=== PATIENT | female | born 1945 | race Hispanic/Latino ===

== ENCOUNTER 2018-01-07 09:39 | Outpatient (CLI) | payer MEDICARE | END 2018-01-07 09:40 | disposition home or self-care (01) | LOC: BICMAMMO 09:39 | PROVIDERS: ATTEND Nurse Practitioner Family | DX: Z12.31 Encounter for screening mammogram for malignant neoplasm of breast (principal); R92.1 Mammographic calcification found on diagnostic imaging of breast | CPT/HCPCS: 77063; 77067 ==

== ENCOUNTER 2019-01-16 15:38 | Outpatient (CLI) | payer MEDICARE ==
--- NOTE | 2019-01-16 16:27 | BD ---
Exam: DEXA Bone Density 01/16/19 HISTORY: Postmenopausal female undergoing screening for osteoporosis. Lumbar Spine: BMD (g/cm2) T-SCORE L1 0.676 -2.9 L2 0.667 -3.3 L3 0.710 -3.4 L4 0.845 -2.0 L1-L4 0.725 -2.9 Femoral Neck: 0.546 -2.7 Total Femur: 0.804 -1.1 FRAX-WHO fracture risk assessment tool is not reported as some T-Scores are at or below -2.5. Impression: Lumbar spine and femoral neck osteoporosis, correlating with a high associated risk for fracture. Transcribed Date/Time: 01/16/2019 4:27 PM
--- NOTE | 2019-01-16 16:53 | MMO ---
Bilateral MAMMO Bilat Screen [facility]. CLINICAL HISTORY: Patient is 73 years old and is seen for screening. The patient has no family history of breast cancer. The patient has no personal history of cancer. VIEWS: The views performed were: bilateral craniocaudal with tomosynthesis and bilateral mediolateral oblique with tomosynthesis. FILMS COMPARED: The present examination has been compared to prior imaging studies performed at [facility] on 11/13/2014, 12/03/2015, 01/05/2017 and 01/07/2018. This study has been interpreted with the assistance of computer-aided detection. MAMMOGRAM FINDINGS: There are scattered fibroglandular densities. There are stable benign appearing calcifications seen in the left breast. There are no suspicious masses, suspicious calcifications, or new areas of architectural distortion. IMPRESSION: THERE IS NO MAMMOGRAPHIC EVIDENCE OF MALIGNANCY. A ROUTINE FOLLOW-UP MAMMOGRAM IN 1 YEAR IS RECOMMENDED. THE RESULTS OF THIS EXAM WERE SENT TO THE PATIENT. ACR BI-RADS Category 2 - Benign finding MAMMOGRAPHY NOTE: 1. A negative mammogram report should not delay a biopsy if a dominant of clinically suspicious mass is present. 2. Approximately 10% to 15% of breast cancers are not detected by mammography. 3. Adenosis and dense breasts may obscure an underlying neoplasm. Reported by: BHAVNA BRADLEY MD Electonically Signed: [id number]
== END 2019-01-16 15:39 | disposition home or self-care (01) ==
LOC: BICMAMMO 15:38
PROVIDERS: ATTEND Nurse Practitioner Family
DX: Z12.31 Encounter for screening mammogram for malignant neoplasm of breast (principal); Z13.820 Encounter for screening for osteoporosis
CPT/HCPCS: 77063; 77067; 77080

== ENCOUNTER 2020-03-19 11:00 | Outpatient (CLI) | payer MEDICARE ==
--- NOTE | 2020-03-19 11:25 | MMO ---
Bilateral MAMMO Bilat Screen [facility]. CLINICAL HISTORY: Patient is 74 years old and is seen for screening. The patient has no family history of breast cancer. The patient has no personal history of cancer. VIEWS: The views performed were: bilateral craniocaudal with tomosynthesis and bilateral mediolateral oblique with tomosynthesis. FILMS COMPARED: The present examination has been compared to prior imaging studies performed at [facility] on 12/03/2015, 01/05/2017, 01/07/2018 and 01/16/2019. This study has been interpreted with the assistance of computer-aided detection. MAMMOGRAM FINDINGS: There are scattered fibroglandular densities. There are stable benign appearing calcifications seen in both breasts. There are no suspicious masses, suspicious calcifications, or new areas of architectural distortion. IMPRESSION: THERE IS NO MAMMOGRAPHIC EVIDENCE OF MALIGNANCY. A ROUTINE FOLLOW-UP MAMMOGRAM IN 1 YEAR IS RECOMMENDED. THE RESULTS OF THIS EXAM WERE SENT TO THE PATIENT. ACR BI-RADS Category 2 - Benign finding MAMMOGRAPHY NOTE: 1. A negative mammogram report should not delay a biopsy if a dominant of clinically suspicious mass is present. 2. Approximately 10% to 15% of breast cancers are not detected by mammography. 3. Adenosis and dense breasts may obscure an underlying neoplasm. Reported by: INO MARSHALL MD Electonically Signed: [id number]
== END 2020-03-19 11:01 | disposition home or self-care (01) ==
LOC: BICMAMMO 11:00
PROVIDERS: ATTEND Nurse Practitioner Family
DX: Z12.31 Encounter for screening mammogram for malignant neoplasm of breast (principal)
CPT/HCPCS: 77063; 77067

== ENCOUNTER 2020-05-23 16:17 | Inpatient (IN) | payer MEDICARE ==
[2020-05-23 17:21] LABS: Hemoglobin 12.8 g/dL (12.0-16.0); Mean Corpuscular HGB CONC 34.8 g/dL (32.0-36.0); Mean Corpuscular Hemoglobin 32.3 pg (27.0-31.0); Mean Corpuscular Volume 92.8 fL (78.0-98.0); Mean Platelet Volume 7.8 fL (7.4-10.4); Platelet Count 392 thou/uL (130-400); RBC Distribution Width 13.1 % (11.5-14.5); Red Blood Cell (RBC) Count 3.97 mill/uL (4.20-5.40); White Blood Cell (WBC) Count 24.4 thou/uL (4.8-10.8)
[2020-05-23 17:40] LABS: Band 20 % (5-11); Eosinophils 9 % (0-10); Lymphocytes 13 % (21-51); MDiff Complete? YES; Monocytes 2 % (0-10); Neutrophil 55 % (42-75); Platelet Morphology Comment Appears Adequate; RBC Morphology Normal; Reactive Lymphocytes 1 % (0-10)
[2020-05-23 17:59] LABS: ALT (SGPT) 28 U/L (8-55); AST (SGOT) 29 U/L (5-34); Albumin 3.2 g/dL (3.4-4.8); Alkaline Phosphatase 111 U/L (40-110); Anion Gap 23 mmol/L (10-20); BUN (Urea Nitrogen) 49 mg/dL (9.8-20.1); Bilirubin, Total 0.6 mg/dL (0.2-1.2); Calc. Creatinine Clearance 0 mL/min (70-130); Calcium 8.4 mg/dL (7.8-10.44); Carbon Dioxide 16 mmol/L (23-31); Chloride 103 mmol/L (98-107); Globulin 3.6 g/dL (2.4-3.5); Glucose 117 mg/dL (83-110); Protein, Total 6.8 g/dL (5.8-8.1); Sodium 139 mmol/L (136-145)
[2020-05-23 18:03] LABS: Potassium 2.5 mmol/L (3.5-5.1)
[2020-05-23] MEDS ORDERED: Cefepime 1 GM VIAL ONE (18:18)
[2020-05-23 18:31] LABS: INR-International Normal Ratio 1.1; PTT 33.6 sec (22.9-36.1)
[2020-05-23 18:39] LABS: D-Dimer Test 9.76 *mcg/mL (0.27-0.43)
[2020-05-23] MEDS ORDERED: Cefepime 1 GM in Sodium Chloride 0.9% 100 ML IVPB SCH (18:45)
[2020-05-23] MEDS ORDERED: Sodium Chloride 0.9% 1,000 ML IV SCH (18:45)
[2020-05-23] MEDS ORDERED: VANCOMYCIN 1.25 GM/250 ML BAG 1.25 GM in Premix Bag 1 BAG IVPB SCH (18:45)
[2020-05-23] MEDS ORDERED: Ondansetron PF 4 MG/2 ML Vial IVP PRN (21:05)
[2020-05-23] MEDS ORDERED: Acetaminophen 325 MG TAB PO PRN (21:05)
[2020-05-23] MEDS ORDERED: hydrALAZINE 20 MG/ML VIAL SLOW IVP PRN (21:06)
[2020-05-23] MEDS ORDERED: Potassium Chloride 20 MEQ TAB PO SCH (21:15)
[2020-05-23] MEDS ORDERED: Dextrose 5 % And 0.9 % NaCl 1,000 ML IV SCH (21:15)
[2020-05-23] MEDS ORDERED: Magnesium Oxide 400 MG TAB PO SCH (21:15)
[2020-05-23] MEDS ORDERED: Potassium Chloride 20 MEQ in Premix Bag 1 BAG IVPB SCH ×2 (21:45→23:15)
[2020-05-23 22:30] VITALS: BMI 27.7
[2020-05-23] MEDS: Sodium Chloride 0.9% 1,000 ML IV SCH (23:09)
[2020-05-24 00:46] LABS: Bilirubin Negative (Negative); Blood, Urine 3+ (Negative); Clarity Turbid (Clear); Glucose, Urine (Dipstick) Normal (Negative); Ketone, Urine Negative (Negative); Leukocyte 500 Leu/uL (Negative); Nitrite Negative (Negative); Protein, Urine (Dipstick) 200 mg/dL (Neg-Trace); RBC/HPF Greater than 50 HPF (0-3); Renal Epithelial 0-3 HPF (None Seen); Specific Gravity, Urine 1.015 (1.002-1.036); Squamous Epithelial 0-3 HPF (0-3); Urobilinogen Normal mg/dL (Less than 2); WBC/HPF Greater than 50 HPF (0-3)
[2020-05-24 00:48] LABS: Bacteria/HPF 3+ HPF (None Seen); Urine Culture Reflex Yes Yes; Yeast-Budding 4+ HPF (None Seen)
[2020-05-24 01:01] LABS: Creatinine, Urine 102.21 mg/dL (47-110)
[2020-05-24 04:56] LABS: SARS-CoV-2 PCR by NAA Not Detected (NotDetected)
[2020-05-24 04:56] LABS: Hemoglobin 9.7 g/dL (12.0-16.0); Mean Corpuscular HGB CONC 34.7 g/dL (32.0-36.0); Mean Corpuscular Hemoglobin 32.2 pg (27.0-31.0); Mean Corpuscular Volume 92.8 fL (78.0-98.0); Mean Platelet Volume 7.5 fL (7.4-10.4); Platelet Count 298 thou/uL (130-400); Red Blood Cell (RBC) Count 3.01 mill/uL (4.20-5.40); White Blood Cell (WBC) Count 16.1 thou/uL (4.8-10.8)
[2020-05-24 05:04] LABS: Potassium 2.6 mmol/L (3.5-5.1)
[2020-05-24 05:05] LABS: Anion Gap 17 mmol/L (10-20); BUN (Urea Nitrogen) 50 mg/dL (9.8-20.1); Calc. Creatinine Clearance 16 mL/min (70-130); Calcium 7.1 mg/dL (7.8-10.44); Carbon Dioxide 21 mmol/L (23-31); Chloride 108 mmol/L (98-107); Glucose 91 mg/dL (83-110); Sodium 143 mmol/L (136-145)
[2020-05-24 05:08] LABS: Band 23 % (5-11); Eosinophils 8 % (0-10); Lymphocytes 21 % (21-51); MDiff Complete? YES; Monocytes 4 % (0-10); Neutrophil 43 % (42-75); Platelet Morphology Comment Appears Adequate; Reactive Lymphocytes 1 % (0-10)
[2020-05-24] MEDS ORDERED: Potassium Chloride 20 MEQ TAB PO SCH ×2 (05:15→17:45)
[2020-05-24] MEDS ORDERED: Bacteriostatic Water 30 ML VIAL FS PRN (10:00)
[2020-05-24] MEDS: Sodium Chloride 0.9% 1,000 ML IV SCH ×2 (10:12→21:36)
[2020-05-24] MEDS: methylPREDNISolone Sod Succ/PF 125 MG/2 ML VIAL IVP SCH (10:12)
[2020-05-24 11:14] LABS: Anion Gap 15 mmol/L (10-20); BUN (Urea Nitrogen) 48 mg/dL (9.8-20.1); Calc. Creatinine Clearance 17 mL/min (70-130); Calcium 7.6 mg/dL (7.8-10.44); Carbon Dioxide 23 mmol/L (23-31); Chloride 108 mmol/L (98-107); Glucose 124 mg/dL (83-110); Sodium 143 mmol/L (136-145)
[2020-05-24 11:21] LABS: Potassium 2.7 mmol/L (3.5-5.1)
[2020-05-24] MEDS ORDERED: Cefepime 0.5 GM, Admixture Fee 1 EACH in Sodium Chloride 0.9% 100 ML IVPB SCH (18:00)
[2020-05-24 18:45] LABS: Vancomycin, Random 13.5 ug/mL (See Comment)
[2020-05-24] MEDS ORDERED: Vancomycin 1 GM in Premix Bag 1 BAG IVPB SCH (19:00)
[2020-05-24] MEDS: diphenhydrAMINE 25 MG CAP PO PRN (22:24)
[2020-05-25 04:43] LABS: #Basophils 0.1 thou/uL (0.0-0.2); #Eosinphils 0.1 thou/uL (0.0-0.7); #Lymphocytes 1.5 thou/uL (1.20-3.40); #Monocytes 0.6 thou/uL (0.11-0.59); #Neutrophils 12.3 thou/uL (1.40-6.50); %Basophils 0.4 % (0.0-1.0); %Eosinophils 0.5 % (0.0-10.0); %Lymphocytes 10.1 % (21.0-51.0); %Monocytes 4.3 % (0.0-10.0); %Neutrophils 84.8 % (42.0-75.0); Hemoglobin 8.9 g/dL (12.0-16.0); Mean Corpuscular HGB CONC 33.2 g/dL (32.0-36.0); Mean Corpuscular Volume 93.3 fL (78.0-98.0); Mean Platelet Volume 7.8 fL (7.4-10.4); Platelet Count 271 thou/uL (130-400); RBC Distribution Width 13.2 % (11.5-14.5); Red Blood Cell (RBC) Count 2.89 mill/uL (4.20-5.40); White Blood Cell (WBC) Count 14.5 thou/uL (4.8-10.8)
[2020-05-25 05:08] LABS: Anion Gap 13 mmol/L (10-20); BUN (Urea Nitrogen) 50 mg/dL (9.8-20.1); Calc. Creatinine Clearance 22 mL/min (70-130); Calcium 7.4 mg/dL (7.8-10.44); Carbon Dioxide 22 mmol/L (23-31); Chloride 114 mmol/L (98-107); Glucose 196 mg/dL (83-110); Magnesium 2.1 mg/dL (1.6-2.6); Sodium 146 mmol/L (136-145)
[2020-05-25 05:13] LABS: Potassium 2.8 mmol/L (3.5-5.1)
[2020-05-25] MEDS ORDERED: Potassium Chloride 20 MEQ TAB PO SCH (05:30)
[2020-05-25] MEDS ORDERED: Cefepime 1 GM in Sodium Chloride 0.9% 100 ML IVPB SCH (06:00)
[2020-05-25] MEDS: Sodium Chloride 0.9% 1,000 ML IV SCH ×2 (07:32→17:20)
[2020-05-25] MEDS: diphenhydrAMINE 25 MG CAP PO PRN ×2 (08:38→22:08)
[2020-05-25] MEDS: methylPREDNISolone Sod Succ/PF 125 MG/2 ML VIAL IVP SCH (08:38)
[2020-05-25] MEDS ORDERED: methylPREDNISolone Sod Succ/PF 125 MG/2 ML VIAL IVP SCH (09:00)
[2020-05-26] MEDS: Sodium Chloride 0.9% 1,000 ML IV SCH ×4 (02:25→21:36)
[2020-05-26 07:21] LABS: Anion Gap 12 mmol/L (10-20); BUN (Urea Nitrogen) 44 mg/dL (9.8-20.1); Calc. Creatinine Clearance 28 mL/min (70-130); Calcium 7.4 mg/dL (7.8-10.44); Carbon Dioxide 21 mmol/L (23-31); Chloride 117 mmol/L (98-107); Glucose 107 mg/dL (83-110); Magnesium 2.1 mg/dL (1.6-2.6); Potassium 3.2 mmol/L (3.5-5.1); Sodium 147 mmol/L (136-145)
[2020-05-26 07:38] LABS: Mean Corpuscular HGB CONC 33.1 g/dL (32.0-36.0); Mean Corpuscular Hemoglobin 31.2 pg (27.0-31.0); Mean Corpuscular Volume 94.2 fL (78.0-98.0); Platelet Count 265 thou/uL (130-400); RBC Distribution Width 13.3 % (11.5-14.5); White Blood Cell (WBC) Count 14.3 thou/uL (4.8-10.8)
[2020-05-26] MEDS: Heparin 5,000 UNITS/ML VIAL SC SCH ×3 (07:51→21:32)
[2020-05-26] MEDS: methylPREDNISolone Sod Succ/PF 125 MG/2 ML VIAL IVP SCH (07:51)
[2020-05-26] MEDS: diphenhydrAMINE 25 MG CAP PO PRN (07:54)
[2020-05-26 10:23] LABS: Band 21 % (5-11); Eosinophils 1 % (0-10); Lymphocytes 16 % (21-51); MDiff Complete? YES; Metamyelocyte 1 % (0-0); Monocytes 6 % (0-10); Myelocyte 1 % (0-0); Neutrophil 53 % (42-75); Platelet Morphology Comment Appears Adequate; Polychromasia SLIGHT = 2-3 cells (100X) (0-2/hpf); Reactive Lymphocytes 1 % (0-10)
[2020-05-27] MEDS: diphenhydrAMINE 25 MG CAP PO PRN (04:44)
[2020-05-27 07:52] VITALS: TEMP 98.4
[2020-05-27] MEDS ORDERED: Furosemide 40 MG/4 ML VIAL SLOW IVP SCH (08:00)
[2020-05-27 08:22] LABS: Anion Gap 15 mmol/L (10-20); BUN (Urea Nitrogen) 45 mg/dL (9.8-20.1); Calc. Creatinine Clearance 31 mL/min (70-130); Calcium 7.2 mg/dL (7.8-10.44); Carbon Dioxide 17 mmol/L (23-31); Chloride 118 mmol/L (98-107); Glucose 96 mg/dL (83-110); Sodium 147 mmol/L (136-145)
[2020-05-27 08:28] LABS: Potassium 2.7 mmol/L (3.5-5.1)
[2020-05-27] MEDS: Heparin 5,000 UNITS/ML VIAL SC SCH (08:56)
[2020-05-27] MEDS: methylPREDNISolone Sod Succ/PF 125 MG/2 ML VIAL IVP SCH (08:57)
[2020-05-27] MEDS ORDERED: Potassium Chloride 20 MEQ TAB PO SCH (10:00)
[2020-05-27 12:14] VITALS: BP 169/82
[2020-05-28 13:32] LABS: ANA Symphony (Qualitative) Negative (Negative); ANA Symphony (Quantitative) 0.1 Ratio (< 0.7 Negative); CCP IgG Antibody Less than 0.4 EliAU/mL (<7 Negative); EliA RAS New Method **** NEW METHOD ****; Rheumatoid Factor IgA Antibody 4.5 IU/mL (<14 Negative); Rheumatoid Factor IgM Antibody 3.3 IU/mL (<3.5 Negative); dsDNA IgG Antibody Less than 0.5 IU/mL (<10 Negative)
== END 2020-05-27 15:03 | disposition home or self-care (01) | DRG 871 ==
LOC: ERS 16:17 → 2NO 19:33 → T4-A 05-25 12:36
PROVIDERS: ADMIT Internal Medicine; ATTEND Internal Medicine
DX: A41.9 Sepsis, unspecified organism (principal); N17.0 Acute kidney failure with tubular necrosis; Z20.822 Contact with and (suspected) exposure to COVID-19; L51.2 Toxic epidermal necrolysis [Lyell]; E87.2 Acidosis; I10 Essential (primary) hypertension; R65.20 Severe sepsis without septic shock; E87.6 Hypokalemia; R79.89 Other specified abnormal findings of blood chemistry; I87.2 Venous insufficiency (chronic) (peripheral); L27.0 Generalized skin eruption due to drugs and medicaments taken internally; T36.8X5A Adverse effect of other systemic antibiotics, initial encounter; T50.2X5A Adverse effect of carbonic-anhydrase inhibitors, benzothiadiazides and other diuretics, initial encounter; T46.4X5A Adverse effect of angiotensin-converting-enzyme inhibitors, initial encounter; T50.Z95A Adverse effect of other vaccines and biological substances, initial encounter; Z79.899 Other long term (current) drug therapy; Z90.721 Acquired absence of ovaries, unilateral
CPT/HCPCS: 36415; 71045; 76770; 80048; 80053; 80202; 81001; 82570; 83520; 83605; 83735; 84300; 85025; 85379; 85610; 85652; 85730; 86038; 86140; 86200; 86225; 87040; 87086; 87635; 93005; 93306; 94640; 96365; 96366; 96367; J0692; J1644; J1940; J2930; J3370; J3480; J7620; Q0163; U0003; U0005

== ENCOUNTER 2022-06-22 09:16 | Outpatient (CLI) | payer OTHER | END 2022-06-22 09:17 | disposition home or self-care (01) | LOC: RAD 09:16 | PROVIDERS: ATTEND Family Medicine | DX: R13.10 Dysphagia, unspecified (principal); K44.9 Diaphragmatic hernia without obstruction or gangrene; K22.89 Other specified disease of esophagus | CPT/HCPCS: 74220 ==

== ENCOUNTER 2022-08-17 14:19 | Emergency (ER) | payer OTHER ==
[2022-08-17] MEDS ORDERED: predniSONE 20 MG TAB ONE (15:51)
== END 2022-08-17 15:58 | disposition home or self-care (01) ==
LOC: ERS 14:19
DX: S69.92XA Unspecified injury of left wrist, hand and finger(s), initial encounter (principal); I10 Essential (primary) hypertension; W22.8XXA Striking against or struck by other objects, initial encounter
CPT/HCPCS: J7512

== ENCOUNTER 2022-11-02 09:58 | Emergency (ER) | payer OTHER | END 2022-11-02 10:27 | disposition home or self-care (01) | LOC: ERS 09:58 | DX: M79.81 Nontraumatic hematoma of soft tissue (principal); I10 Essential (primary) hypertension | CPT/HCPCS: 99283 ==

== ENCOUNTER 2022-11-20 13:01 | Inpatient (IN) | payer OTHER ==
[2022-11-20] MEDS ORDERED: Ondansetron PF 4 MG/2 ML Vial ONE (14:16)
[2022-11-20] MEDS ORDERED: Cefepime 2 GM VIAL ONE (14:16)
[2022-11-20 14:30] LABS: #Monocytes 0.7 thou/uL (0.11-0.59); #Neutrophils 15.5 thou/uL (1.40-6.50); %Basophils 0.2 % (0.0-1.0); %Monocytes 3.8 % (0.0-10.0); Hematocrit 13.9 % (36.0-47.0); Hemoglobin 4.2 g/dL (12.0-16.0); Mean Corpuscular HGB CONC 30.2 g/dL (32.0-36.0); Mean Corpuscular Hemoglobin 30.9 pg (27.0-31.0); Mean Corpuscular Volume 102.2 fl (78.0-98.0); Mean Platelet Volume 11.4 fL (7.4-10.4); Platelet Count 312 10x3/uL (130-400); RBC Distribution Width 18.3 % (11.5-14.5); Red Blood Cell (RBC) Count 1.36 mill/uL (4.20-5.40); White Blood Cell (WBC) Count 17.8 10x3/uL (4.8-10.8)
[2022-11-20 14:43] LABS: INR-International Normal Ratio 1.1; PTT 37.8 sec (22.9-36.1); Prothrombin Time 15.1 sec (12.0-14.7)
[2022-11-20 14:44] LABS: #Monocytes 0.7 thou/uL (0.11-0.59); #Neutrophils 14.6 thou/uL (1.40-6.50); %Basophils 0.2 % (0.0-1.0); %Lymphocytes 8.2 % (21.0-51.0); %Neutrophils 86.5 % (42.0-75.0); Hemoglobin 3.9 g/dL (12.0-16.0); Mean Corpuscular Volume 103.2 fl (78.0-98.0); Mean Platelet Volume 11.5 fL (7.4-10.4); Platelet Count 280 10x3/uL (130-400); RBC Distribution Width 18.3 % (11.5-14.5); Red Blood Cell (RBC) Count 1.26 mill/uL (4.20-5.40); White Blood Cell (WBC) Count 16.8 10x3/uL (4.8-10.8)
[2022-11-20 15:00] LABS: Troponin I 0.018 ng/mL (< 0.028)
[2022-11-20 15:07] LABS: ALT (SGPT) 15 U/L (8-55); AST (SGOT) 35 U/L (5-34); Albumin 3.4 g/dL (3.4-4.8); Alkaline Phosphatase 65 U/L (40-110); Anion Gap 20 mmol/L (10-20); BUN (Urea Nitrogen) 78 mg/dL (9.8-20.1); Bilirubin, Total 0.2 mg/dL (0.2-1.2); Calc. Creatinine Clearance 0 mL/min (70-130); Calcium 9.2 mg/dL (7.8-10.44); Carbon Dioxide 19 mmol/L (23-31); Chloride 103 mmol/L (98-107); Estimated GFR 20; Globulin 2.3 g/dL (2.4-3.5); Glucose 173 mg/dL (83-110); Lipase 24 U/L (8-78); Potassium 4.8 mmol/L (3.5-5.1); Protein, Total 5.7 g/dL (5.8-8.1); Sodium 137 mmol/L (136-145)
[2022-11-20 15:34] LABS: SARS-CoV-2 NAA Rapid Test Not Detected (NotDetected)
[2022-11-20] MEDS ORDERED: Pantoprazole 80 MG, Admixture Fee 1 EACH in Sodium Chloride 0.9% 100 ML IVPB SCH (17:00)
[2022-11-20] MEDS ORDERED: Vancomycin 1 GM/200 ML (FROZEN) BAG ONE (18:10)
[2022-11-20 19:07] LABS: Bacteria/HPF None Seen HPF (None Seen); Bilirubin Negative (Negative); Blood, Urine Negative (Negative); CAUTI Indications for Culture Dysuria,urgency,freq; Clarity Clear (Clear); Glucose, Urine (Dipstick) Normal (Negative); Ketone, Urine Negative (Negative); Leukocyte Negative Leu/uL (Negative); Nitrite Negative (Negative); Protein, Urine (Dipstick) Negative (Neg-Trace); RBC/HPF 0-3 HPF (0-3); Specific Gravity, Urine 1.015 (1.002-1.036); Squamous Epithelial 0-3 HPF (0-3); Urobilinogen Normal mg/dL (Less than 2); WBC/HPF 0-3 HPF (0-3); pH, Urine 5.5 (5.0-9.0)
[2022-11-20] MEDS ORDERED: Ondansetron PF 4 MG/2 ML Vial IVP PRN (19:07)
[2022-11-20] MEDS ORDERED: Acetaminophen 325 MG TAB PO PRN (19:07)
[2022-11-20 19:09] LABS: Urine Culture Reflex No No
[2022-11-20] MEDS: Sodium Chloride 0.9% 1,000 ML IV SCH (21:15)
[2022-11-20 21:49] LABS: Hemoglobin 7.1 g/dL (12.0-16.0)
[2022-11-20 23:06] VITALS: BMI 28.3
[2022-11-20 23:43] LABS: Lactic Acid 1.4 mmol/L (0.5-2.2)
[2022-11-21 02:55] LABS: Anion Gap 13 mmol/L (10-20); BUN (Urea Nitrogen) 69 mg/dL (9.8-20.1); Calc. Creatinine Clearance 26 mL/min (70-130); Calcium 7.7 mg/dL (7.8-10.44); Carbon Dioxide 17 mmol/L (23-31); Chloride 113 mmol/L (98-107); Estimated GFR 27; Glucose 120 mg/dL (83-110); Magnesium 1.7 mg/dL (1.6-2.6); Potassium 3.8 mmol/L (3.5-5.1); Sodium 139 mmol/L (136-145)
[2022-11-21 03:12] LABS: #Neutrophils 8.4 thou/uL (1.40-6.50); %Basophils 0.3 % (0.0-1.0); %Eosinophils 0.3 % (0.0-10.0); %Lymphocytes 15.8 % (21.0-51.0); %Monocytes 8.7 % (0.0-10.0); %Neutrophils 73.2 % (42.0-75.0); Hematocrit 18.2 % (36.0-47.0); Hemoglobin 5.7 g/dL (12.0-16.0); Mean Corpuscular HGB CONC 31.3 g/dL (32.0-36.0); Mean Corpuscular Hemoglobin 30.5 pg (27.0-31.0); RBC Distribution Width 18.8 % (11.5-14.5); Red Blood Cell (RBC) Count 1.87 mill/uL (4.20-5.40); White Blood Cell (WBC) Count 11.4 10x3/uL (4.8-10.8)
[2022-11-21 03:20] LABS: Mean Corpuscular Volume 97.3 fl (78.0-98.0); Platelet Count 166 10x3/uL (130-400)
[2022-11-21 07:33] LABS: Hematocrit 22.6 % (36.0-47.0); Hemoglobin 7.2 g/dL (12.0-16.0)
[2022-11-21] MEDS: Pantoprazole 80 MG, Admixture Fee 1 EACH in Sodium Chloride 0.9% 100 ML IVPB SCH ×2 (08:00→17:44)
[2022-11-21 08:08] VITALS: BP 132/68
[2022-11-21 09:42] LABS: Hematocrit 27.9 % (36.0-47.0); Hemoglobin 9.2 g/dL (12.0-16.0)
[2022-11-21] MEDS: Sodium Chloride 0.9% 1,000 ML IV SCH ×2 (09:58→21:30)
[2022-11-21] MEDS ORDERED: Magnesium 2 GM/50 ML(in water) 2 GM in Premix Bag 1 BAG IVPB SCH (10:30)
[2022-11-21] MEDS ORDERED: Cyanocobalamin 1000 MCG/ML VIAL IM SCH (15:30)
[2022-11-21] MEDS: Cefepime 1 GM in Sodium Chloride 0.9% 100 ML IVPB SCH (16:05)
[2022-11-22] MEDS: Pantoprazole 80 MG, Admixture Fee 1 EACH in Sodium Chloride 0.9% 100 ML IVPB SCH ×2 (04:42→15:06)
[2022-11-22 05:04] LABS: #Basophils 0.1 thou/uL (0.0-0.2); #Eosinphils 0.3 thou/uL (0.0-0.7); #Monocytes 0.8 thou/uL (0.11-0.59); #Neutrophils 6.7 thou/uL (1.40-6.50); %Basophils 0.6 % (0.0-1.0); %Eosinophils 2.5 % (0.0-10.0); %Lymphocytes 19.5 % (21.0-51.0); %Monocytes 7.8 % (0.0-10.0); %Neutrophils 67.2 % (42.0-75.0); Hematocrit 24.9 % (36.0-47.0); Hemoglobin 7.9 g/dL (12.0-16.0); Mean Corpuscular HGB CONC 31.7 g/dL (32.0-36.0); Mean Corpuscular Volume 97.6 fl (78.0-98.0); Mean Platelet Volume 11.4 fL (7.4-10.4); Platelet Count 144 10x3/uL (130-400); RBC Distribution Width 18.2 % (11.5-14.5); Red Blood Cell (RBC) Count 2.55 mill/uL (4.20-5.40)
[2022-11-22 07:14] LABS: Anion Gap 12 mmol/L (10-20); BUN (Urea Nitrogen) 54 mg/dL (9.8-20.1); Calc. Creatinine Clearance 32 mL/min (70-130); Calcium 7.6 mg/dL (7.8-10.44); Carbon Dioxide 17 mmol/L (23-31); Chloride 113 mmol/L (98-107); Estimated GFR 34; Glucose 83 mg/dL (83-110); Potassium 4.6 mmol/L (3.5-5.1); Sodium 137 mmol/L (136-145)
[2022-11-22] MEDS: Sodium Chloride 0.9% 1,000 ML IV SCH (11:03)
[2022-11-22 12:41] LABS: Hematocrit 25.8 % (36.0-47.0); Hemoglobin 8.4 g/dL (12.0-16.0)
[2022-11-22] MEDS: Cefepime 1 GM in Sodium Chloride 0.9% 100 ML IVPB SCH (15:06)
[2022-11-22 17:28] VITALS: TEMP 97.1
== END 2022-11-22 20:00 | disposition home or self-care (01) | DRG 872 ==
LOC: ERS 13:01 → ERHOLD 18:22 → IMCU/EMU 21:11
PROVIDERS: ADMIT Family Medicine; ATTEND Emergency Medicine
PROC: 30233N1 Transfusion of Nonautologous Red Blood Cells into Peripheral Vein, Percutaneous Approach (ICD-10-PCS; principal; 2022-11-20)
PROC: 3E03329 Introduction of Other Anti-infective into Peripheral Vein, Percutaneous Approach (ICD-10-PCS; 2022-11-20)
DX: A41.9 Sepsis, unspecified organism (principal); E87.20 Acidosis, unspecified; N17.9 Acute kidney failure, unspecified; I12.9 Hypertensive chronic kidney disease with stage 1 through stage 4 chronic kidney disease, or unspecified chronic kidney disease; K44.9 Diaphragmatic hernia without obstruction or gangrene; N18.30 Chronic kidney disease, stage 3 unspecified; D63.1 Anemia in chronic kidney disease; I95.9 Hypotension, unspecified; Z20.822 Contact with and (suspected) exposure to COVID-19; K52.9 Noninfective gastroenteritis and colitis, unspecified; R65.20 Severe sepsis without septic shock; E83.42 Hypomagnesemia; K80.20 Calculus of gallbladder without cholecystitis without obstruction; K63.89 Other specified diseases of intestine; K21.00 Gastro-esophageal reflux disease with esophagitis, without bleeding; Z98.51 Tubal ligation status; Z90.722 Acquired absence of ovaries, bilateral; E53.8 Deficiency of other specified B group vitamins
CPT/HCPCS: 36415; 36416; 36430; 70450; 71045; 74176; 80048; 81001; 82274; 82607; 83605; 83690; 83735; 83880; 84132; 84443; 84484; 85025; 85610; 85730; 86850; 86900; 86901; 87040; 87086; 93005; 94760; 96361; 96365; 96367; 96375; C9113; J0692; J2405; J3370-JW; J3420; J3475; J3490; J7050; P9016; U0002

== ENCOUNTER 2023-01-23 17:55 | Emergency (ER) | payer MEDICARE, OTHER ==
[~2023-01-23 17:55] MED LIST: Iopamidol-370 76% 500 ML MDV (1 ML CHARGE) ONE
[2023-01-23 18:48] LABS: #Basophils 0.1 thou/uL (0.0-0.2); #Eosinphils 0.3 thou/uL (0.0-0.7); #Monocytes 0.9 thou/uL (0.11-0.59); #Neutrophils 9.6 thou/uL (1.40-6.50); %Basophils 0.6 % (0.0-1.0); %Eosinophils 2.5 % (0.0-10.0); %Lymphocytes 10.3 % (21.0-51.0); %Monocytes 7.3 % (0.0-10.0); %Neutrophils 78.7 % (42.0-75.0); Hematocrit 31.2 % (36.0-47.0); Mean Corpuscular HGB CONC 32.1 g/dL (32.0-36.0); Mean Corpuscular Hemoglobin 30.1 pg (27.0-31.0); Mean Platelet Volume 10.1 fL (7.4-10.4); Platelet Count 400 10x3/uL (130-400); Red Blood Cell (RBC) Count 3.32 mill/uL (4.20-5.40); White Blood Cell (WBC) Count 12.2 10x3/uL (4.8-10.8)
[2023-01-23 19:00] LABS: Prothrombin Time 13.7 sec (12.0-14.7)
[2023-01-23 19:01] LABS: PTT 61.7 sec (22.9-36.1)
[2023-01-23 19:14] LABS: ALT (SGPT) 13 U/L (8-55); AST (SGOT) 23 U/L (5-34); Albumin 4.1 g/dL (3.4-4.8); Alkaline Phosphatase 137 U/L (40-110); Anion Gap 13 mmol/L (10-20); BUN (Urea Nitrogen) 22 mg/dL (9.8-20.1); Bilirubin, Total 0.4 mg/dL (0.2-1.2); CK (CPK) 170 U/L (29-168); Calc. Creatinine Clearance 0 mL/min (70-130); Calcium 8.6 mg/dL (7.8-10.44); Carbon Dioxide 20 mmol/L (23-31); Chloride 111 mmol/L (98-107); Estimated GFR 37; Globulin 2.8 g/dL (2.4-3.5); Glucose 120 mg/dL (83-110); Protein, Total 6.9 g/dL (5.8-8.1); Sodium 140 mmol/L (136-145)
[2023-01-23 19:18] LABS: Troponin I 0.011 ng/mL (< 0.028)
[2023-01-23 22:15] LABS: Troponin I Less than 0.010 ng/mL (< 0.028)
[2023-01-23 22:22] LABS: Bacteria/HPF 1+ HPF (None Seen); Bilirubin Negative (Negative); Blood, Urine 1+ (Negative); CAUTI Indications for Culture Dysuria,urgency,freq; Clarity Clear (Clear); Glucose, Urine (Dipstick) Normal (Negative); Ketone, Urine Negative (Negative); Leukocyte 75 Leu/uL (Negative); Nitrite Negative (Negative); Protein, Urine (Dipstick) Negative (Neg-Trace); Specific Gravity, Urine 1.015 (1.002-1.036); Squamous Epithelial 0-3 HPF (0-3); Urine Culture Reflex No No; Urobilinogen Normal mg/dL (Less than 2); WBC/HPF 0-3 HPF (0-3)
== END 2023-01-23 23:10 | disposition home or self-care (01) ==
LOC: ERS 17:55
DX: S42.401A Unspecified fracture of lower end of right humerus, initial encounter for closed fracture (principal); I72.8 Aneurysm of other specified arteries; K44.9 Diaphragmatic hernia without obstruction or gangrene; R00.0 Tachycardia, unspecified; I10 Essential (primary) hypertension; X58.XXXA Exposure to other specified factors, initial encounter
CPT/HCPCS: 29125; 36415; 71045; 71275; 80053; 81001; 82550; 83735; 83880; 84443; 84484; 85025; 85610; 85730; 93005; 96360; Q9967

== ENCOUNTER 2023-02-02 17:18 | Inpatient (IN) | payer OTHER ==
[2023-02-02] MEDS ORDERED: Pantoprazole 40 MG VIAL ONE (18:12)
[2023-02-02 18:39] LABS: Hematocrit 13.8 % (36.0-47.0); Manual Diff?? YES; Mean Corpuscular Hemoglobin 32.8 pg (27.0-31.0); Mean Corpuscular Volume 113.1 fl (78.0-98.0); Mean Platelet Volume 10.4 fL (7.4-10.4); Platelet Count 408 10x3/uL (130-400); RBC Distribution Width 23.8 % (11.5-14.5); Red Blood Cell (RBC) Count 1.22 mill/uL (4.20-5.40); White Blood Cell (WBC) Count 19.6 10x3/uL (4.8-10.8)
[2023-02-02 18:41] LABS: Delete Auto Diff?? YES
[2023-02-02 19:04] LABS: ALT (SGPT) 8 U/L (8-55); AST (SGOT) 16 U/L (5-34); Albumin 3.3 g/dL (3.4-4.8); Alkaline Phosphatase 77 U/L (40-110); Anion Gap 17 mmol/L (10-20); BUN (Urea Nitrogen) 58 mg/dL (9.8-20.1); Bilirubin, Total 0.7 mg/dL (0.2-1.2); Calc. Creatinine Clearance 0 mL/min (70-130); Calcium 8.6 mg/dL (7.8-10.44); Carbon Dioxide 17 mmol/L (23-31); Chloride 111 mmol/L (98-107); Estimated GFR 36; Globulin 2.1 g/dL (2.4-3.5); Glucose 168 mg/dL (83-110); Lipase 27 U/L (8-78); Potassium 4.1 mmol/L (3.5-5.1); Protein, Total 5.4 g/dL (5.8-8.1); Sodium 141 mmol/L (136-145)
[2023-02-02 19:08] LABS: Troponin I Less than 0.010 ng/mL (< 0.028)
[2023-02-02 19:11] LABS: INR-International Normal Ratio 1.2; Prothrombin Time 15.9 sec (12.0-14.7)
[2023-02-02 19:12] LABS: PTT 40.2 sec (22.9-36.1)
[2023-02-02 19:14] LABS: Anisocytosis MODERATE=16-30 cells HPF (0-5); Band 4 % (5-11); CellaVision Operator ID LAB.KB; Hypochromia SLIGHT = 6-15 cells HPF (0-5); Lymphocytes 7 % (21-51); Macrocytosis MODERATE=16-30 cells HPF (0-5); Monocytes 3 % (0-10); Myelocyte 1 % (0-0); Neutrophil 85 % (42-75); Nucleated RBC (Manual Ct) 2 % (0); Ovalocytes SLIGHT = 2-5 cells HPF (0-1); Platelet Adequacy Comment Platelets Increased; Polychromasia SLIGHT = 2-3 cells HPF (0-2); Smudge Cells 6.9 %; Total Cell Count 102
[2023-02-02] MEDS ORDERED: Acetaminophen 325 MG TAB PO PRN (21:36)
[2023-02-02] MEDS ORDERED: Ondansetron ODT 4 MG TAB PO PRN (21:41)
[2023-02-02] MEDS ORDERED: Ondansetron PF 4 MG/2 ML Vial IVP PRN (21:41)
[2023-02-02 21:47] LABS: Lactic Acid 1.2 mmol/L (0.5-2.2)
[2023-02-02] MEDS ORDERED: Pantoprazole 80 MG in Sodium Chloride 0.9% 100 ML IVPB SCH (21:47)
[2023-02-02] MEDS: Pantoprazole 80 MG, Admixture Fee 1 EACH in Sodium Chloride 0.9% 100 ML IVPB SCH (23:56)
[2023-02-03 01:03] LABS: Hematocrit 15.2 % (36.0-47.0); Hemoglobin 4.7 g/dL (12.0-16.0)
[2023-02-03] MEDS: Pantoprazole 80 MG, Admixture Fee 1 EACH in Sodium Chloride 0.9% 100 ML IVPB SCH (09:26)
[2023-02-03 10:42] LABS: Manual Diff?? YES; Mean Corpuscular Hemoglobin 28.3 pg (27.0-31.0); Mean Platelet Volume 10.1 fL (7.4-10.4); Platelet Count 255 10x3/uL (130-400); RBC Distribution Width 19.9 % (11.5-14.5); Red Blood Cell (RBC) Count 2.86 mill/uL (4.20-5.40); White Blood Cell (WBC) Count 14.3 10x3/uL (4.8-10.8)
[2023-02-03 10:45] LABS: Hemoglobin 8.1 g/dL (12.0-16.0)
[2023-02-03 10:46] LABS: Hematocrit 25.3 % (36.0-47.0); Mean Corpuscular Volume 88.5 fl (78.0-98.0)
[2023-02-03 10:47] LABS: Delete Auto Diff?? YES
[2023-02-03 10:56] LABS: Anion Gap 11 mmol/L (10-20); BUN (Urea Nitrogen) 48 mg/dL (9.8-20.1); Calc. Creatinine Clearance 43 mL/min (70-130); Calcium 7.8 mg/dL (7.8-10.44); Carbon Dioxide 20 mmol/L (23-31); Chloride 117 mmol/L (98-107); Estimated GFR 50; Glucose 110 mg/dL (83-110); Potassium 3.9 mmol/L (3.5-5.1); Sodium 144 mmol/L (136-145)
[2023-02-03 11:17] LABS: Band 5 % (5-11); Burr Cells SLIGHT = 2-5 cells HPF (0-1); CellaVision Operator ID LAB.CMB; Lymphocytes 7 % (21-51); Macrocytosis SLIGHT = 6-15 cells HPF (0-5); Monocytes 3 % (0-10); Neutrophil 82 % (42-75); Nucleated RBC (Manual Ct) 7 % (0); Ovalocytes SLIGHT = 2-5 cells HPF (0-1); Platelet Adequacy Comment Platelets Normal; Polychromasia SLIGHT = 2-3 cells HPF (0-2); Total Cell Count 101
[2023-02-03 11:37] LABS: Ferritin 87.34 ng/mL (10-291)
[2023-02-03] MEDS: Sucralfate 1 GM TAB PO SCH ×3 (11:40→21:58)
[2023-02-03 12:41] LABS: HBSAg Index 0.24 S/CO (0-0.99); Hep B Surf Ag Non-Reactive S/CO (NonReactive); Hep C IgG Ab Non-Reactive S/CO (NonReactive); Hep C Index 0.03 S/CO (0-0.79)
[2023-02-03 12:43] LABS: HBCM Index 0.05 S/CO (0-0.79); Hep A IgM AB Non-Reactive S/CO (NonReactive); Hep A IgM S/CO 0.21 S/CO (0-0.79); Hepatitis B Core IgM Abs Non-Reactive S/CO (NonReactive)
[2023-02-03 13:00] LABS: Iron 204 ug/dL (50-170); Iron Binding Capacity, Total 360 mcg/dL (265-497)
[2023-02-03] MEDS ORDERED: FLU VACC QS2023(65UP)/MF59C/PF 60 MCG/0.5 ML SYRINGE IM ONE (23:45)
[2023-02-04 05:57] LABS: Hematocrit 21.5 % (36.0-47.0); Hemoglobin 6.7 g/dL (12.0-16.0); Manual Diff?? YES; Mean Corpuscular HGB CONC 31.2 g/dL (32.0-36.0); Mean Corpuscular Hemoglobin 28.4 pg (27.0-31.0); Mean Corpuscular Volume 91.1 fl (78.0-98.0); Mean Platelet Volume 10.6 fL (7.4-10.4); Platelet Count 245 10x3/uL (130-400); Red Blood Cell (RBC) Count 2.36 mill/uL (4.20-5.40); White Blood Cell (WBC) Count 10.6 10x3/uL (4.8-10.8)
[2023-02-04 06:23] LABS: Anion Gap 11 mmol/L (10-20); BUN (Urea Nitrogen) 48 mg/dL (9.8-20.1); Calc. Creatinine Clearance 43 mL/min (70-130); Calcium 7.9 mg/dL (7.8-10.44); Carbon Dioxide 20 mmol/L (23-31); Chloride 115 mmol/L (98-107); Estimated GFR 50; Glucose 108 mg/dL (83-110); Potassium 3.7 mmol/L (3.5-5.1); Sodium 142 mmol/L (136-145)
[2023-02-04 06:30] LABS: Delete Auto Diff?? YES
[2023-02-04 06:57] LABS: Anisocytosis MODERATE=16-30 cells HPF (0-5); CellaVision Operator ID lab.abc; Eosinophils 1 % (0-10); Hypochromia SLIGHT = 6-15 cells HPF (0-5); Lymphocytes 13 % (21-51); Macrocytosis SLIGHT = 6-15 cells HPF (0-5); Metamyelocyte 2 % (0-0); Monocytes 5 % (0-10); Myelocyte 1 % (0-0); Neutrophil 78 % (42-75); Nucleated RBC (Manual Ct) 2 % (0); Platelet Adequacy Comment Platelets Normal; Polychromasia MODERATE = 3-4 cells HPF (0-2); Total Cell Count 100
[2023-02-04] MEDS: Sucralfate 1 GM TAB PO SCH ×3 (07:55→16:47)
[2023-02-04 08:26] LABS: Hematocrit 20.2 % (36.0-47.0); Hemoglobin 6.3 g/dL (12.0-16.0)
[2023-02-04] MEDS: Ferrous Sulfate 325 MG TAB PO SCH (09:34)
[2023-02-04] MEDS: Multivitamin W/ Minerals 1 TAB PO SCH (09:34)
[2023-02-04] MEDS: Cholecalciferol 1,000 UNITS (25 MCG) TAB PO SCH (09:34)
[2023-02-04] MEDS: Cyanocobalamin (Vitamin B-12) 1,000 MCG TAB PO SCH (09:34)
[2023-02-04] MEDS: Ascorbic Acid 500 mg Chewable Tablet PO SCH (09:35)
[2023-02-04] MEDS: Amlodipine 5 MG TAB PO SCH (09:35)
[2023-02-04] MEDS: Folic Acid 1 MG TAB PO SCH (09:35)
[2023-02-05 04:06] LABS: #Eosinphils 0.2 thou/uL (0.0-0.7); #Monocytes 0.8 thou/uL (0.11-0.59); #Neutrophils 6.6 thou/uL (1.40-6.50); %Basophils 0.4 % (0.0-1.0); %Eosinophils 1.9 % (0.0-10.0); %Lymphocytes 15.9 % (21.0-51.0); %Monocytes 8.4 % (0.0-10.0); %Neutrophils 69.2 % (42.0-75.0); Hematocrit 20.5 % (36.0-47.0); Hemoglobin 6.5 g/dL (12.0-16.0); Mean Corpuscular HGB CONC 31.7 g/dL (32.0-36.0); Mean Corpuscular Hemoglobin 28.9 pg (27.0-31.0); Mean Corpuscular Volume 91.1 fl (78.0-98.0); Mean Platelet Volume 10.5 fL (7.4-10.4); Platelet Count 208 10x3/uL (130-400); Red Blood Cell (RBC) Count 2.25 mill/uL (4.20-5.40); White Blood Cell (WBC) Count 9.6 10x3/uL (4.8-10.8)
[2023-02-05 04:29] LABS: Anion Gap 9 mmol/L (10-20); BUN (Urea Nitrogen) 39 mg/dL (9.8-20.1); Calc. Creatinine Clearance 45 mL/min (70-130); Calcium 7.7 mg/dL (7.8-10.44); Carbon Dioxide 22 mmol/L (23-31); Chloride 112 mmol/L (98-107); Estimated GFR 53; Glucose 97 mg/dL (83-110); Potassium 3.6 mmol/L (3.5-5.1); Sodium 139 mmol/L (136-145)
[2023-02-05] MEDS ORDERED: PROPOFOL 200 MG/20 ML VIAL ONE (09:36)
[2023-02-05] MEDS ORDERED: EPINEPHrine 1 MG/10 ML Abboject SYRINGE ONE (09:43)
[2023-02-05] MEDS ORDERED: PROPOFOL 40 ML ONE (09:56)
[2023-02-05] MEDS: Folic Acid 1 MG TAB PO SCH (11:23)
[2023-02-05] MEDS: Ferrous Sulfate 325 MG TAB PO SCH (11:23)
[2023-02-05] MEDS: Cyanocobalamin (Vitamin B-12) 1,000 MCG TAB PO SCH (11:23)
[2023-02-05] MEDS: Cholecalciferol 1,000 UNITS (25 MCG) TAB PO SCH (11:24)
[2023-02-05] MEDS: Multivitamin W/ Minerals 1 TAB PO SCH (11:24)
[2023-02-05] MEDS: Ascorbic Acid 500 mg Chewable Tablet PO SCH (11:24)
[2023-02-05] MEDS: Amlodipine 5 MG TAB PO SCH (11:24)
[2023-02-05] MEDS ORDERED: Pantoprazole 40 MG VIAL IVP SCH (11:45)
[2023-02-05 17:45] LABS: Hemoglobin 8.6 g/dL (12.0-16.0)
[2023-02-05] MEDS: Pantoprazole 40 MG VIAL IVP SCH (20:40)
[2023-02-06 05:10] LABS: #Eosinphils 0.1 thou/uL (0.0-0.7); #Monocytes 0.7 thou/uL (0.11-0.59); #Neutrophils 9.2 thou/uL (1.40-6.50); %Basophils 0.2 % (0.0-1.0); %Eosinophils 1.2 % (0.0-10.0); %Lymphocytes 9.2 % (21.0-51.0); %Neutrophils 81.7 % (42.0-75.0); Hematocrit 23.8 % (36.0-47.0); Hemoglobin 7.8 g/dL (12.0-16.0); Mean Corpuscular HGB CONC 32.8 g/dL (32.0-36.0); Mean Corpuscular Hemoglobin 30.7 pg (27.0-31.0); Mean Corpuscular Volume 93.7 fl (78.0-98.0); Mean Platelet Volume 10.5 fL (7.4-10.4); Platelet Count 210 10x3/uL (130-400); RBC Distribution Width 22.5 % (11.5-14.5); Red Blood Cell (RBC) Count 2.54 mill/uL (4.20-5.40); White Blood Cell (WBC) Count 11.3 10x3/uL (4.8-10.8)
[2023-02-06 05:39] LABS: Anion Gap 9 mmol/L (10-20); BUN (Urea Nitrogen) 24 mg/dL (9.8-20.1); Calc. Creatinine Clearance 39 mL/min (70-130); Carbon Dioxide 24 mmol/L (23-31); Chloride 111 mmol/L (98-107); Estimated GFR 45; Glucose 93 mg/dL (83-110); Potassium 3.6 mmol/L (3.5-5.1); Sodium 140 mmol/L (136-145)
[2023-02-06] MEDS: Cyanocobalamin (Vitamin B-12) 1,000 MCG TAB PO SCH (08:53)
[2023-02-06] MEDS: Folic Acid 1 MG TAB PO SCH (08:53)
[2023-02-06] MEDS: Ascorbic Acid 500 mg Chewable Tablet PO SCH (08:53)
[2023-02-06] MEDS: Multivitamin W/ Minerals 1 TAB PO SCH (08:53)
[2023-02-06] MEDS: Cholecalciferol 1,000 UNITS (25 MCG) TAB PO SCH (08:53)
[2023-02-06] MEDS: Ferrous Sulfate 325 MG TAB PO SCH (08:53)
[2023-02-06] MEDS: Pantoprazole 40 MG VIAL IVP SCH (08:54)
[2023-02-06] MEDS: Amlodipine 5 MG TAB PO SCH (08:54)
[2023-02-06 20:40] LABS: #Eosinphils 0.1 thou/uL (0.0-0.7); #Monocytes 0.9 thou/uL (0.11-0.59); #Neutrophils 9.6 thou/uL (1.40-6.50); %Basophils 0.3 % (0.0-1.0); %Eosinophils 0.6 % (0.0-10.0); %Lymphocytes 6.8 % (21.0-51.0); %Monocytes 8.1 % (0.0-10.0); %Neutrophils 83.2 % (42.0-75.0); Hematocrit 25.5 % (36.0-47.0); Hemoglobin 8.3 g/dL (12.0-16.0); Mean Corpuscular HGB CONC 32.5 g/dL (32.0-36.0); Mean Corpuscular Hemoglobin 30.7 pg (27.0-31.0); Mean Corpuscular Volume 94.4 fl (78.0-98.0); Mean Platelet Volume 10.2 fL (7.4-10.4); Platelet Count 230 10x3/uL (130-400); RBC Distribution Width 22.8 % (11.5-14.5); White Blood Cell (WBC) Count 11.6 10x3/uL (4.8-10.8)
[2023-02-07 06:16] LABS: #Eosinphils 0.1 thou/uL (0.0-0.7); #Monocytes 0.7 thou/uL (0.11-0.59); #Neutrophils 7.7 thou/uL (1.40-6.50); %Basophils 0.3 % (0.0-1.0); %Eosinophils 1.2 % (0.0-10.0); %Lymphocytes 8.3 % (21.0-51.0); %Monocytes 7.8 % (0.0-10.0); %Neutrophils 81.2 % (42.0-75.0); Hematocrit 26.4 % (36.0-47.0); Hemoglobin 8.3 g/dL (12.0-16.0); Mean Corpuscular HGB CONC 31.4 g/dL (32.0-36.0); Mean Corpuscular Volume 95.3 fl (78.0-98.0); Mean Platelet Volume 10.7 fL (7.4-10.4); Platelet Count 239 10x3/uL (130-400); RBC Distribution Width 22.5 % (11.5-14.5); Red Blood Cell (RBC) Count 2.77 mill/uL (4.20-5.40); White Blood Cell (WBC) Count 9.5 10x3/uL (4.8-10.8)
[2023-02-07 08:56] VITALS: BP 128/74; TEMP 98.5
[2023-02-07] MEDS: Ascorbic Acid 500 mg Chewable Tablet PO SCH (10:01)
[2023-02-07] MEDS: Cholecalciferol 1,000 UNITS (25 MCG) TAB PO SCH (10:02)
[2023-02-07] MEDS: Ferrous Sulfate 325 MG TAB PO SCH (10:02)
[2023-02-07] MEDS: Folic Acid 1 MG TAB PO SCH (10:02)
[2023-02-07] MEDS: Multivitamin W/ Minerals 1 TAB PO SCH (10:02)
[2023-02-07] MEDS: Amlodipine 5 MG TAB PO SCH (10:02)
[2023-02-07] MEDS: Cyanocobalamin (Vitamin B-12) 1,000 MCG TAB PO SCH (10:02)
== END 2023-02-07 11:35 | disposition home or self-care (01) | DRG 381 ==
LOC: ERS 17:18 → 2NO 20:53 → T4-A 02-06 14:15
PROVIDERS: ADMIT Student in an Organized Health Care Education/Training Program; ATTEND Family Medicine
PROC: 30233N1 Transfusion of Nonautologous Red Blood Cells into Peripheral Vein, Percutaneous Approach (ICD-10-PCS; 2023-02-02)
PROC: 0W3P8ZZ Control Bleeding in Gastrointestinal Tract, Via Natural or Artificial Opening Endoscopic (ICD-10-PCS; principal; 2023-02-05)
DX: K22.11 Ulcer of esophagus with bleeding (principal); D62 Acute posthemorrhagic anemia; N17.9 Acute kidney failure, unspecified; K21.00 Gastro-esophageal reflux disease with esophagitis, without bleeding; N18.30 Chronic kidney disease, stage 3 unspecified; I12.9 Hypertensive chronic kidney disease with stage 1 through stage 4 chronic kidney disease, or unspecified chronic kidney disease; D63.1 Anemia in chronic kidney disease; Z98.51 Tubal ligation status; Z79.899 Other long term (current) drug therapy; Z98.890 Other specified postprocedural states; K44.9 Diaphragmatic hernia without obstruction or gangrene; E63.9 Nutritional deficiency, unspecified
CPT/HCPCS: 36415; 36430; 74177; 80048; 80053; 80074; 82274; 82607; 82728; 83540; 83550; 83605; 83690; 84484; 85025; 85610; 85730; 86850; 86900; 86901; 88184; 93005; 96361; 96374; C9113; J0171; J2704; J3490; P9016; Q9967

== ENCOUNTER 2023-04-25 09:19 | Inpatient (IN) | payer MEDICARE, OTHER ==
[2023-04-25 09:54] LABS: #Basophils 0.1 thou/uL (0.0-0.2); #Monocytes 0.6 thou/uL (0.11-0.59); #Neutrophils 11.1 thou/uL (1.40-6.50); %Basophils 0.5 % (0.0-1.0); %Eosinophils 0.1 % (0.0-10.0); %Lymphocytes 7.6 % (21.0-51.0); %Monocytes 4.5 % (0.0-10.0); %Neutrophils 86.6 % (42.0-75.0); Hematocrit 18.3 % (36.0-47.0); Hemoglobin 5.7 g/dL (12.0-16.0); Mean Corpuscular HGB CONC 31.1 g/dL (32.0-36.0); Mean Corpuscular Hemoglobin 28.1 pg (27.0-31.0); Mean Corpuscular Volume 90.1 fl (78.0-98.0); Mean Platelet Volume 10.2 fL (7.4-10.4); Platelet Count 428 10x3/uL (130-400); RBC Distribution Width 16.7 % (11.5-14.5); Red Blood Cell (RBC) Count 2.03 mill/uL (4.20-5.40); White Blood Cell (WBC) Count 12.9 10x3/uL (4.8-10.8)
[2023-04-25 09:58] LABS: Critical Call w/ Read Back ERS.JI AT 958
[2023-04-25 10:13] LABS: INR-International Normal Ratio 1.4; Prothrombin Time 17.1 sec (12.0-14.7)
[2023-04-25 10:14] LABS: PTT 69.9 sec (22.9-36.1)
[2023-04-25 10:30] LABS: ALT (SGPT) 9 U/L (8-55); AST (SGOT) 16 U/L (5-34); Albumin 3.5 g/dL (3.4-4.8); Alkaline Phosphatase 86 U/L (40-110); Anion Gap 15 mmol/L (10-20); BUN (Urea Nitrogen) 46 mg/dL (9.8-20.1); Bilirubin, Total 0.8 mg/dL (0.2-1.2); Calc. Creatinine Clearance 0 mL/min (70-130); Calcium 8.7 mg/dL (7.8-10.44); Carbon Dioxide 17 mmol/L (23-31); Chloride 111 mmol/L (98-107); Estimated GFR 32; Globulin 2.5 g/dL (2.4-3.5); Glucose 175 mg/dL (83-110); Potassium 4.1 mmol/L (3.5-5.1); Sodium 139 mmol/L (136-145)
[2023-04-25] MEDS ORDERED: Pantoprazole 40 MG VIAL ONE (10:32)
[2023-04-25] MEDS ORDERED: Iopamidol-370 76% 500 ML MDV (1 ML CHARGE) ONE (10:38)
[2023-04-25] MEDS ORDERED: Acetaminophen 325 MG TAB PO PRN (12:48)
[2023-04-25] MEDS ORDERED: Ondansetron PF 4 MG/2 ML Vial ONE (13:58)
[2023-04-25] MEDS: Ondansetron PF 4 MG/2 ML Vial IVP PRN (14:05)
[2023-04-25] MEDS ORDERED: Morphine 2 MG/ML VIAL ONE (15:34)
[2023-04-25] MEDS: Morphine 2 MG/ML VIAL SLOW IVP PRN (15:39)
[2023-04-25 18:13] VITALS: BMI 25.9
[2023-04-25 18:36] LABS: Hematocrit 20.5 % (36.0-47.0); Hemoglobin 6.9 g/dL (12.0-16.0)
[2023-04-25 18:53] LABS: Lactic Acid 3.5 mmol/L (0.5-2.2)
[2023-04-25] MEDS: Lactated Ringer's 1,000 ML IV SCH (19:15)
[2023-04-26] MEDS: Pantoprazole 80 MG in Sodium Chloride 0.9% 100 ML IVPB SCH (03:21)
[2023-04-26 05:55] LABS: Hematocrit 19.9 % (36.0-47.0); Hematocrit 20.6 % (36.0-47.0); Hemoglobin 6.7 g/dL (12.0-16.0); Manual Diff?? YES; Mean Corpuscular HGB CONC 33.7 g/dL (32.0-36.0); Mean Corpuscular Hemoglobin 31.2 pg (27.0-31.0); Mean Corpuscular Volume 92.6 fl (78.0-98.0); Mean Platelet Volume 10.9 fL (7.4-10.4); RBC Distribution Width 14.3 % (11.5-14.5); Red Blood Cell (RBC) Count 2.15 mill/uL (4.20-5.40); White Blood Cell (WBC) Count 26.2 10x3/uL (4.8-10.8)
[2023-04-26 06:02] LABS: Delete Auto Diff?? YES; Platelet Count 259 10x3/uL (130-400)
[2023-04-26 06:28] LABS: Anion Gap 18 mmol/L (10-20); Anisocytosis SLIGHT = 6-15 cells HPF (0-5); BUN (Urea Nitrogen) 64 mg/dL (9.8-20.1); Band 6 % (5-11); Calc. Creatinine Clearance 23 mL/min (70-130); Calcium 7.4 mg/dL (7.8-10.44); Carbon Dioxide 14 mmol/L (23-31); CellaVision Operator ID LAB.CLH1; Chloride 115 mmol/L (98-107); Estimated GFR 23; Glucose 198 mg/dL (83-110); Hypochromia SLIGHT = 6-15 cells HPF (0-5); Lymphocytes 3 % (21-51); Monocytes 4 % (0-10); Neutrophil 87 % (42-75); Nucleated RBC (Manual Ct) 2 % (0); Platelet Adequacy Comment Platelets Normal; Polychromasia SLIGHT = 2-3 cells HPF (0-2); Potassium 4.9 mmol/L (3.5-5.1); Sodium 142 mmol/L (136-145); Total Cell Count 101
[2023-04-26] MEDS ORDERED: Pantoprazole 80 MG, Admixture Fee 1 EACH in Sodium Chloride 0.9% 100 ML IVPB SCH (07:00)
[2023-04-26] MEDS ORDERED: Fentanyl 100 MCG/2 ML VIAL SLOW IVP PRN (07:40)
[2023-04-26] MEDS ORDERED: fentaNYL 50 mcg/mL 1 mL Vial SLOW IVP PRN (07:45)
[2023-04-26] MEDS ORDERED: Sodium Chloride 0.9% 250 ML IV SCH (07:45)
[2023-04-26] MEDS ORDERED: Lidocaine 1% PF 5 ML VIAL ONE (09:41)
[2023-04-26] MEDS ORDERED: SUCCINYLCHOLINE/SOD CL,ISO/PF 200 MG/10 ML SYRINGE FS ONE (09:41)
[2023-04-26] MEDS ORDERED: PROPOFOL 20 ML ONE (09:41)
[2023-04-26] MEDS ORDERED: fentaNYL 50 mcg/mL 1 mL Vial ONE (09:41)
[2023-04-26] MEDS ORDERED: Rocuronium Bromide 10 MG/ML (10ML VIAL) ONE (09:41)
[2023-04-26] MEDS ORDERED: Albumin 5% 500 ML ONE (09:48)
[2023-04-26] MEDS ORDERED: Etomidate 40 MG (20 mL) VIAL ONE (09:49)
[2023-04-26] MEDS ORDERED: Phenylephrine 40 MG/NS 250 ML 250 ML ONE (09:50)
[2023-04-26 09:59] LABS: Base Excess (BEa) -11.2 mEq/L (-2.0 to +3.0); Calcium, Ionized (arterial) 1.04 mmol/L (1.12-1.30); Hematocrit-ABG 24 % (36.0-47.0); Hemoglobin (Hb) 8.2 g/dL (12.0-16.0); O2 Tension (PaO2), arterial 79.7 mmHg (> 70.0); Potassium - ABG Lab 5.08 mmol/L (3.70-5.30); pH, Arterial 7.405 (7.35-7.45)
[2023-04-26 10:01] LABS: CO2 Tension 19.6 mmHg (35.0-45.0)
[2023-04-26] MEDS ORDERED: EPINEPHrine 1 MG/10 ML Abboject SYRINGE ONE (11:01)
[2023-04-26] MEDS: Sodium Bicarbonate 150 MEQ in Dextrose 5% in Water 1,000 ML IV SCH (16:00)
[2023-04-26 17:15] LABS: #Monocytes 1.8 thou/uL (0.11-0.59); #Neutrophils 16.9 thou/uL (1.40-6.50); %Basophils 0.2 % (0.0-1.0); %Monocytes 8.3 % (0.0-10.0); %Neutrophils 78.1 % (42.0-75.0); Hematocrit 24.7 % (36.0-47.0); Hemoglobin 8.3 g/dL (12.0-16.0); Mean Corpuscular HGB CONC 33.6 g/dL (32.0-36.0); Mean Corpuscular Hemoglobin 30.9 pg (27.0-31.0); Mean Corpuscular Volume 91.8 fl (78.0-98.0); Mean Platelet Volume 10.8 fL (7.4-10.4); Platelet Count 174 10x3/uL (130-400); RBC Distribution Width 14.8 % (11.5-14.5); Red Blood Cell (RBC) Count 2.69 mill/uL (4.20-5.40); White Blood Cell (WBC) Count 21.7 10x3/uL (4.8-10.8)
[2023-04-26 17:37] LABS: Anion Gap 13 mmol/L (10-20); BUN (Urea Nitrogen) 72 mg/dL (9.8-20.1); Calc. Creatinine Clearance 20 mL/min (70-130); Calcium 7.3 mg/dL (7.8-10.44); Carbon Dioxide 17 mmol/L (23-31); Chloride 115 mmol/L (98-107); Estimated GFR 20; Glucose 167 mg/dL (83-110); Potassium 4.4 mmol/L (3.5-5.1); Sodium 141 mmol/L (136-145)
[2023-04-27 06:35] LABS: #Neutrophils 10.2 thou/uL (1.40-6.50); %Basophils 0.3 % (0.0-1.0); %Eosinophils 0.2 % (0.0-10.0); %Lymphocytes 11.8 % (21.0-51.0); %Monocytes 7.6 % (0.0-10.0); %Neutrophils 77.6 % (42.0-75.0); Hemoglobin 7.5 g/dL (12.0-16.0); Mean Corpuscular HGB CONC 32.6 g/dL (32.0-36.0); Mean Corpuscular Hemoglobin 31.4 pg (27.0-31.0); Mean Platelet Volume 10.9 fL (7.4-10.4); Platelet Count 154 10x3/uL (130-400); RBC Distribution Width 16.4 % (11.5-14.5); Red Blood Cell (RBC) Count 2.39 mill/uL (4.20-5.40); White Blood Cell (WBC) Count 13.1 10x3/uL (4.8-10.8)
[2023-04-27 06:43] LABS: Mean Corpuscular Volume 96.2 fl (78.0-98.0)
[2023-04-27 07:01] LABS: Anion Gap 12 mmol/L (10-20); BUN (Urea Nitrogen) 58 mg/dL (9.8-20.1); Calc. Creatinine Clearance 27 mL/min (70-130); Calcium 7.3 mg/dL (7.8-10.44); Carbon Dioxide 24 mmol/L (23-31); Chloride 112 mmol/L (98-107); Estimated GFR 28; Glucose 122 mg/dL (83-110); Potassium 3.5 mmol/L (3.5-5.1); Sodium 144 mmol/L (136-145)
[2023-04-27] MEDS: Pantoprazole 40 MG VIAL IVP SCH (09:01)
[2023-04-27] MEDS: Potassium Chloride 20 MEQ in Lactated Ringer's 1,000 ML IV SCH (09:01)
[2023-04-27 13:16] LABS: Hematocrit 24.6 % (36.0-47.0); Hemoglobin 8.4 g/dL (12.0-16.0)
[2023-04-28 06:07] LABS: #Basophils 0.1 thou/uL (0.0-0.2); #Eosinphils 0.1 thou/uL (0.0-0.7); #Monocytes 0.8 thou/uL (0.11-0.59); #Neutrophils 7.9 thou/uL (1.40-6.50); %Basophils 0.5 % (0.0-1.0); %Eosinophils 0.7 % (0.0-10.0); %Lymphocytes 11.8 % (21.0-51.0); %Monocytes 7.6 % (0.0-10.0); %Neutrophils 76.7 % (42.0-75.0); Hematocrit 25.6 % (36.0-47.0); Hemoglobin 8.6 g/dL (12.0-16.0); Mean Corpuscular HGB CONC 33.6 g/dL (32.0-36.0); Mean Corpuscular Hemoglobin 31.5 pg (27.0-31.0); Mean Corpuscular Volume 93.8 fl (78.0-98.0); Mean Platelet Volume 10.2 fL (7.4-10.4); Platelet Count 183 10x3/uL (130-400); RBC Distribution Width 18.4 % (11.5-14.5); Red Blood Cell (RBC) Count 2.73 mill/uL (4.20-5.40); White Blood Cell (WBC) Count 10.3 10x3/uL (4.8-10.8)
[2023-04-28 06:32] LABS: Anion Gap 9 mmol/L (10-20); BUN (Urea Nitrogen) 29 mg/dL (9.8-20.1); Calc. Creatinine Clearance 38 mL/min (70-130); Carbon Dioxide 25 mmol/L (23-31); Chloride 111 mmol/L (98-107); Estimated GFR 42; Glucose 92 mg/dL (83-110); Potassium 3.8 mmol/L (3.5-5.1); Sodium 141 mmol/L (136-145)
[2023-04-28 12:38] LABS: Hematocrit 25.5 % (36.0-47.0); Hemoglobin 8.3 g/dL (12.0-16.0); Platelet Count 193 10x3/uL (130-400)
[2023-04-29 05:29] LABS: #Eosinphils 0.1 thou/uL (0.0-0.7); #Monocytes 0.6 thou/uL (0.11-0.59); #Neutrophils 5.2 thou/uL (1.40-6.50); %Basophils 0.4 % (0.0-1.0); %Lymphocytes 12.9 % (21.0-51.0); %Monocytes 8.6 % (0.0-10.0); %Neutrophils 74.1 % (42.0-75.0); Mean Corpuscular HGB CONC 32.1 g/dL (32.0-36.0); Mean Corpuscular Hemoglobin 31.7 pg (27.0-31.0); Platelet Count 198 10x3/uL (130-400); RBC Distribution Width 18.7 % (11.5-14.5); Red Blood Cell (RBC) Count 2.84 mill/uL (4.20-5.40)
[2023-04-29 05:32] LABS: Bacteria/HPF 4+ HPF (None Seen); Bilirubin Negative (Negative); Blood, Urine 3+ (Negative); CAUTI Indications for Culture Acute Hematuria; Clarity Clear (Clear); Glucose, Urine (Dipstick) Normal (Negative); Ketone, Urine Negative (Negative); Leukocyte Negative Leu/uL (Negative); Nitrite Negative (Negative); Protein, Urine (Dipstick) Negative (Neg-Trace); RBC/HPF 0-3 HPF (0-3); Specific Gravity, Urine 1.008 (1.002-1.036); Squamous Epithelial 0-3 HPF (0-3); Urobilinogen Normal mg/dL (Less than 2); pH, Urine 7.5 (5.0-9.0)
[2023-04-29 05:33] LABS: Urine Culture Reflex No No
[2023-04-29 05:51] LABS: Mean Corpuscular Volume 98.6 fl (78.0-98.0)
[2023-04-29] MEDS: cefTRIAXone\\ROCEPHIN 1 GM in Sodium Chloride 0.9% 100 ML IVPB SCH (09:17)
[2023-04-30 08:04] LABS: Hemoglobin 8.4 g/dL (12.0-16.0)
[2023-04-30 08:40] VITALS: BP 136/78; TEMP 97.6
== END 2023-04-30 11:09 | disposition home or self-care (01) | DRG 381 ==
LOC: ERS 09:19 → ERHOLD 12:24 → 2NO 17:27 → SURG A 04-26 11:52 → IMCU/EMU 04-26 15:55 → T4-B 04-29 19:33
PROVIDERS: ADMIT Internal Medicine; ATTEND Family Medicine
PROC: 30243N1 Transfusion of Nonautologous Red Blood Cells into Central Vein, Percutaneous Approach (ICD-10-PCS; 2023-04-25)
PROC: 0W3P8ZZ Control Bleeding in Gastrointestinal Tract, Via Natural or Artificial Opening Endoscopic (ICD-10-PCS; principal; 2023-04-26)
PROC: 3E0G8GC Introduction of Other Therapeutic Substance into Upper GI, Via Natural or Artificial Opening Endoscopic (ICD-10-PCS; 2023-04-26)
PROC: 0DD68ZX Extraction of Stomach, Via Natural or Artificial Opening Endoscopic, Diagnostic (ICD-10-PCS; 2023-04-26)
DX: K22.11 Ulcer of esophagus with bleeding (principal); D62 Acute posthemorrhagic anemia; E87.20 Acidosis, unspecified; N17.9 Acute kidney failure, unspecified; K44.9 Diaphragmatic hernia without obstruction or gangrene; I12.9 Hypertensive chronic kidney disease with stage 1 through stage 4 chronic kidney disease, or unspecified chronic kidney disease; R00.0 Tachycardia, unspecified; N18.30 Chronic kidney disease, stage 3 unspecified; E11.22 Type 2 diabetes mellitus with diabetic chronic kidney disease; R31.9 Hematuria, unspecified; K21.9 Gastro-esophageal reflux disease without esophagitis; Z79.899 Other long term (current) drug therapy
CPT/HCPCS: 36415; 36416; 36430; 71045; 74177; 80048; 80053; 81001; 82805; 83605; 83690; 85018; 85025; 85610; 85730; 86850; 86900; 86901; 87040; 87077; 87086; 87186; 94760; 96361; 96374; C1889; C9113; J0171; J0696; J2272; J2405; J2704; J3010; J3480; J3490; J7070; J7120; P9016; P9045; Q9967

== ENCOUNTER 2023-05-21 12:38 | Inpatient (IN) | payer OTHER ==
[2023-05-21 13:27] LABS: #Eosinphils 0.1 thou/uL (0.0-0.7); #Monocytes 0.6 thou/uL (0.11-0.59); #Neutrophils 6.7 thou/uL (1.40-6.50); %Basophils 0.2 % (0.0-1.0); %Eosinophils 0.9 % (0.0-10.0); %Lymphocytes 8.5 % (21.0-51.0); %Neutrophils 82.7 % (42.0-75.0); Hematocrit 18.3 % (36.0-47.0); Hemoglobin 5.6 g/dL (12.0-16.0); Mean Corpuscular HGB CONC 30.6 g/dL (32.0-36.0); Mean Corpuscular Hemoglobin 29.8 pg (27.0-31.0); Mean Corpuscular Volume 97.3 fl (78.0-98.0); Mean Platelet Volume 10.2 fL (7.4-10.4); Platelet Count 423 10x3/uL (130-400); RBC Distribution Width 16.2 % (11.5-14.5); Red Blood Cell (RBC) Count 1.88 mill/uL (4.20-5.40); White Blood Cell (WBC) Count 8.1 10x3/uL (4.8-10.8)
[2023-05-21 13:29] LABS: Critical Call w/ Read Back NUR.MKL@1329
[2023-05-21 13:41] LABS: INR-International Normal Ratio 1.1; Prothrombin Time 14.5 sec (12.0-14.7)
[2023-05-21 13:43] LABS: PTT 97.6 sec (22.9-36.1)
[2023-05-21 13:46] LABS: ALT (SGPT) 18 U/L (8-55); AST (SGOT) 34 U/L (5-34); Albumin 3.5 g/dL (3.4-4.8); Alkaline Phosphatase 118 U/L (40-110); Anion Gap 15 mmol/L (10-20); BUN (Urea Nitrogen) 18 mg/dL (9.8-20.1); Bilirubin, Total 1.1 mg/dL (0.2-1.2); Calc. Creatinine Clearance 0 mL/min (70-130); Calcium 8.9 mg/dL (7.8-10.44); Carbon Dioxide 20 mmol/L (23-31); Chloride 109 mmol/L (98-107); Estimated GFR 34; Globulin 2.8 g/dL (2.4-3.5); Glucose 103 mg/dL (83-110); Potassium 4.2 mmol/L (3.5-5.1); Protein, Total 6.3 g/dL (5.8-8.1); Sodium 140 mmol/L (136-145)
[2023-05-21] MEDS ORDERED: Morphine 4 MG/ML VIAL ONE (13:54)
[2023-05-21] MEDS ORDERED: Ondansetron PF 4 MG/2 ML Vial ONE (13:54)
[2023-05-21 14:29] LABS: Troponin I Less than 0.010 ng/mL (< 0.028)
[2023-05-21] MEDS ORDERED: Ondansetron PF 4 MG/2 ML Vial IVP PRN (16:23)
[2023-05-21] MEDS ORDERED: Bisacodyl 10 MG SUPP PR PRN (16:23)
[2023-05-21] MEDS ORDERED: Senokot S 8.6-50 MG TAB PO PRN (16:23)
[2023-05-21] MEDS ORDERED: Bisacodyl 5 MG TAB PO PRN (16:23)
[2023-05-21] MEDS ORDERED: Acetaminophen 325 MG TAB ONE (18:55)
[2023-05-21] MEDS: Acetaminophen 325 MG TAB PO PRN (19:03)
[2023-05-21 20:57] LABS: Hematocrit 24.8 % (36.0-47.0); Hemoglobin 8.2 g/dL (12.0-16.0); Mean Corpuscular HGB CONC 33.1 g/dL (32.0-36.0); Mean Corpuscular Hemoglobin 29.6 pg (27.0-31.0); Mean Platelet Volume 9.9 fL (7.4-10.4); Platelet Count 362 10x3/uL (130-400); RBC Distribution Width 17.3 % (11.5-14.5); Red Blood Cell (RBC) Count 2.77 mill/uL (4.20-5.40); White Blood Cell (WBC) Count 8.9 10x3/uL (4.8-10.8)
[2023-05-21 20:58] LABS: Platelet Count 352 10x3/uL (130-400)
[2023-05-21 20:59] LABS: Mean Corpuscular Volume 89.5 fl (78.0-98.0)
[2023-05-21 21:11] LABS: INR-International Normal Ratio 1.1; Prothrombin Time 14.5 sec (12.0-14.7)
[2023-05-21 21:12] LABS: Fibrinogen 463 mg/dL (253-463)
[2023-05-21 21:13] LABS: PTT 105.3 sec (22.9-36.1)
[2023-05-21 21:21] LABS: D-Dimer Test 5.48 mcg/mL (0.27-0.43)
[2023-05-21] MEDS: Pantoprazole 40 MG VIAL IVP SCH (22:10)
[2023-05-21 22:30] VITALS: BMI 27.4
[2023-05-22 04:48] LABS: #Eosinphils 0.2 thou/uL (0.0-0.7); #Monocytes 0.7 thou/uL (0.11-0.59); %Basophils 0.4 % (0.0-1.0); %Eosinophils 3.3 % (0.0-10.0); %Lymphocytes 13.5 % (21.0-51.0); %Monocytes 9.9 % (0.0-10.0); %Neutrophils 72.3 % (42.0-75.0); Hematocrit 23.7 % (36.0-47.0); Hemoglobin 7.9 g/dL (12.0-16.0); Mean Corpuscular HGB CONC 33.3 g/dL (32.0-36.0); Mean Corpuscular Hemoglobin 30.3 pg (27.0-31.0); Mean Corpuscular Volume 90.8 fl (78.0-98.0); Mean Platelet Volume 10.3 fL (7.4-10.4); Platelet Count 357 10x3/uL (130-400); RBC Distribution Width 17.6 % (11.5-14.5); Red Blood Cell (RBC) Count 2.61 mill/uL (4.20-5.40)
[2023-05-22 04:51] LABS: Platelet Count 360 10x3/uL (130-400)
[2023-05-22 05:04] LABS: Hemoglobin A1c 4.9 % (4.0-6.0)
[2023-05-22 05:27] LABS: ALT (SGPT) 15 U/L (8-55); AST (SGOT) 28 U/L (5-34); Alkaline Phosphatase 101 U/L (40-110); Anion Gap 12 mmol/L (10-20); BUN (Urea Nitrogen) 15 mg/dL (9.8-20.1); Bilirubin, Total 1.7 mg/dL (0.2-1.2); Calc. Creatinine Clearance 40 mL/min (70-130); Calcium 8.4 mg/dL (7.8-10.44); Carbon Dioxide 20 mmol/L (23-31); Cardiac Risk 2.5 (Less than 4.5); Chloride 112 mmol/L (98-107); Cholesterol 105 mg/dl (< 200 Desired); Estimated GFR 41; Globulin 2.4 g/dL (2.4-3.5); Glucose 87 mg/dL (83-110); HDL Cholesterol 42 mg/dL (>60 Neg Risk); LDL Cholesterol, Calculated 47 mg/dL; Potassium 4.2 mmol/L (3.5-5.1); Protein, Total 5.4 g/dL (5.8-8.1); Sodium 140 mmol/L (136-145); Triglycerides 80 mg/dL (Less than 150)
[2023-05-22 05:28] LABS: INR-International Normal Ratio 1.2
[2023-05-22 05:29] LABS: INR-International Normal Ratio 1.2; Prothrombin Time 15.1 sec (12.0-14.7)
[2023-05-22 05:31] LABS: Fibrinogen 427 mg/dL (253-463)
[2023-05-22 05:33] LABS: PTT 105.8 sec (22.9-36.1)
[2023-05-22 05:42] LABS: D-Dimer Test 5.02 mcg/mL (0.27-0.43)
[2023-05-22 06:45] LABS: Free T4 (Free Thyroxine) 1.09 ng/dL (0.70-1.48)
[2023-05-22 06:46] LABS: Thyroid Stimulating Hormone 5.1176 uIU/mL (0.35-4.94)
[2023-05-22 08:39] LABS: PT - Undiluted 14.2 sec (12.0-14.7)
[2023-05-22 08:42] LABS: PTT - Undiluted 106.5 sec (22.9-36.1)
[2023-05-22 12:33] LABS: PT 1:1 37C-90 min. Incubation 13.2 sec (12.0-14.7); PTT 1:1 37C/90 MIN Incubation 86.9 sec (22.9-36.1); PTT 1:1 Mix 60.3 sec (22.9-36.1)
[2023-05-22 15:28] LABS: Reference Lab Name LABCORP
[2023-05-22 16:01] LABS: Reference Lab Name LABCORP
[2023-05-22 16:06] LABS: Ref Lab Test Ordered Factor IX Inhibitor
[2023-05-22 16:07] LABS: Reference Lab Name LABCORP
[2023-05-22 16:13] LABS: Ref Lab Test Ordered Factor XI Inhibitor
[2023-05-22 16:14] LABS: Ref Lab Test Ordered Factor XII Inh.; Reference Lab Name LABCORP
[2023-05-23 04:54] LABS: #Eosinphils 0.3 thou/uL (0.0-0.7); #Monocytes 0.5 thou/uL (0.11-0.59); #Neutrophils 5.1 thou/uL (1.40-6.50); %Basophils 0.6 % (0.0-1.0); %Eosinophils 4.2 % (0.0-10.0); %Lymphocytes 12.3 % (21.0-51.0); %Monocytes 7.6 % (0.0-10.0); %Neutrophils 74.6 % (42.0-75.0); Hemoglobin 8.1 g/dL (12.0-16.0); Mean Corpuscular HGB CONC 31.2 g/dL (32.0-36.0); Mean Corpuscular Hemoglobin 28.7 pg (27.0-31.0); Mean Corpuscular Volume 92.2 fl (78.0-98.0); Mean Platelet Volume 10.1 fL (7.4-10.4); Platelet Count 386 10x3/uL (130-400); RBC Distribution Width 17.2 % (11.5-14.5); Red Blood Cell (RBC) Count 2.82 mill/uL (4.20-5.40); White Blood Cell (WBC) Count 6.9 10x3/uL (4.8-10.8)
[2023-05-23 04:56] LABS: Platelet Count 389 10x3/uL (130-400)
[2023-05-23 05:13] LABS: Fibrinogen 430 mg/dL (253-463); INR-International Normal Ratio 1.1; Prothrombin Time 14.5 sec (12.0-14.7)
[2023-05-23 05:14] LABS: INR-International Normal Ratio 1.2; Prothrombin Time 14.9 sec (12.0-14.7)
[2023-05-23 05:15] LABS: PTT 100.1 sec (22.9-36.1)
[2023-05-23 05:16] LABS: PTT 105.1 sec (22.9-36.1)
[2023-05-23 05:23] LABS: D-Dimer Test 6.42 mcg/mL (0.27-0.43)
[2023-05-23 05:24] LABS: ALT (SGPT) 13 U/L (8-55); AST (SGOT) 22 U/L (5-34); Alkaline Phosphatase 103 U/L (40-110); Anion Gap 12 mmol/L (10-20); BUN (Urea Nitrogen) 13 mg/dL (9.8-20.1); Bilirubin, Total 1.4 mg/dL (0.2-1.2); Calc. Creatinine Clearance 42 mL/min (70-130); Calcium 8.8 mg/dL (7.8-10.44); Carbon Dioxide 21 mmol/L (23-31); Chloride 112 mmol/L (98-107); Estimated GFR 44; Globulin 2.5 g/dL (2.4-3.5); Glucose 91 mg/dL (83-110); Protein, Total 5.5 g/dL (5.8-8.1); Sodium 141 mmol/L (136-145)
[2023-05-23 15:53] LABS: DRVVT Confirm 40.3
[2023-05-23] MEDS: Metoprolol Tartrate 25 MG TAB PO SCH (20:24)
[2023-05-24 05:21] LABS: Platelet Count 402 10x3/uL (130-400)
[2023-05-24 05:25] LABS: #Eosinphils 0.3 thou/uL (0.0-0.7); #Monocytes 0.5 thou/uL (0.11-0.59); #Neutrophils 3.8 thou/uL (1.40-6.50); %Basophils 0.4 % (0.0-1.0); %Eosinophils 5.7 % (0.0-10.0); %Lymphocytes 15.3 % (21.0-51.0); %Monocytes 9.2 % (0.0-10.0); %Neutrophils 68.8 % (42.0-75.0); Hemoglobin 8.1 g/dL (12.0-16.0); Mean Corpuscular HGB CONC 31.2 g/dL (32.0-36.0); Mean Corpuscular Hemoglobin 29.8 pg (27.0-31.0); Mean Corpuscular Volume 95.6 fl (78.0-98.0); Mean Platelet Volume 9.9 fL (7.4-10.4); Platelet Count 397 10x3/uL (130-400); RBC Distribution Width 16.9 % (11.5-14.5); Red Blood Cell (RBC) Count 2.72 mill/uL (4.20-5.40); White Blood Cell (WBC) Count 5.4 10x3/uL (4.8-10.8)
[2023-05-24 05:46] LABS: ALT (SGPT) 13 U/L (8-55); AST (SGOT) 22 U/L (5-34); Alkaline Phosphatase 104 U/L (40-110); Anion Gap 13 mmol/L (10-20); BUN (Urea Nitrogen) 13 mg/dL (9.8-20.1); Bilirubin, Total 1.3 mg/dL (0.2-1.2); Calc. Creatinine Clearance 47 mL/min (70-130); Calcium 8.8 mg/dL (7.8-10.44); Carbon Dioxide 19 mmol/L (23-31); Chloride 113 mmol/L (98-107); Estimated GFR 50; Globulin 2.5 g/dL (2.4-3.5); Glucose 82 mg/dL (83-110); Potassium 3.9 mmol/L (3.5-5.1); Protein, Total 5.5 g/dL (5.8-8.1); Sodium 141 mmol/L (136-145)
[2023-05-24 05:52] LABS: Fibrinogen 438 mg/dL (253-463); INR-International Normal Ratio 1.1; Prothrombin Time 13.9 sec (12.0-14.7)
[2023-05-24 05:54] LABS: PTT 99.6 sec (22.9-36.1)
[2023-05-24 06:06] LABS: D-Dimer Test 6.16 mcg/mL (0.27-0.43)
[2023-05-24 07:19] LABS: INR-International Normal Ratio 1.1; Prothrombin Time 13.9 sec (12.0-14.7)
[2023-05-24] MEDS: predniSONE 20 MG TAB PO SCH (12:17)
[2023-05-25 08:15] LABS: #Basophils Less than 0.0 thou/uL (0.0-0.2); #Eosinphils Less than 0.0 thou/uL (0.0-0.7); #Monocytes 0.5 thou/uL (0.11-0.59); #Neutrophils 8.3 thou/uL (1.40-6.50); %Basophils 0.1 % (0.0-1.0); %Lymphocytes 7.5 % (21.0-51.0); %Monocytes 5.2 % (0.0-10.0); %Neutrophils 86.6 % (42.0-75.0); Hematocrit 25.5 % (36.0-47.0); Hemoglobin 8.1 g/dL (12.0-16.0); Mean Corpuscular HGB CONC 31.8 g/dL (32.0-36.0); Mean Corpuscular Volume 94.4 fl (78.0-98.0); Mean Platelet Volume 9.9 fL (7.4-10.4); Platelet Count 440 10x3/uL (130-400); White Blood Cell (WBC) Count 9.6 10x3/uL (4.8-10.8)
[2023-05-25 08:27] LABS: INR-International Normal Ratio 1.1; Prothrombin Time 14.3 sec (12.0-14.7)
[2023-05-25 08:28] LABS: Fibrinogen 439 mg/dL (253-463)
[2023-05-25 08:31] LABS: D-Dimer Test 3.56 mcg/mL (0.27-0.43)
[2023-05-25 08:41] LABS: Platelet Count 438 10x3/uL (130-400)
[2023-05-25 08:48] LABS: ALT (SGPT) 12 U/L (8-55); AST (SGOT) 17 U/L (5-34); Albumin 3.2 g/dL (3.4-4.8); Alkaline Phosphatase 118 U/L (40-110); Anion Gap 13 mmol/L (10-20); BUN (Urea Nitrogen) 17 mg/dL (9.8-20.1); Bilirubin, Total 1.1 mg/dL (0.2-1.2); Calc. Creatinine Clearance 43 mL/min (70-130); Calcium 9.2 mg/dL (7.8-10.44); Carbon Dioxide 21 mmol/L (23-31); Chloride 111 mmol/L (98-107); Estimated GFR 45; Globulin 2.7 g/dL (2.4-3.5); Glucose 120 mg/dL (83-110); Potassium 3.8 mmol/L (3.5-5.1); Protein, Total 5.9 g/dL (5.8-8.1); Sodium 141 mmol/L (136-145)
[2023-05-25] MEDS: predniSONE 20 MG TAB PO SCH (09:40)
[2023-05-25 18:10] VITALS: BP 143/76; TEMP 98.1
== END 2023-05-25 20:21 | disposition short-term general hospital (02) | DRG 380 ==
LOC: ERS 12:38 → ERHOLD 15:36 → 2NO 20:03 → T4-A 05-23 12:36
PROVIDERS: ADMIT Family Medicine; ATTEND Hospitalist
PROC: 30233N1 Transfusion of Nonautologous Red Blood Cells into Peripheral Vein, Percutaneous Approach (ICD-10-PCS; principal; 2023-05-21)
DX: K22.11 Ulcer of esophagus with bleeding (principal); D66 Hereditary factor VIII deficiency; D62 Acute posthemorrhagic anemia; D68.9 Coagulation defect, unspecified; N17.9 Acute kidney failure, unspecified; K92.2 Gastrointestinal hemorrhage, unspecified; N18.32 Chronic kidney disease, stage 3b; K44.9 Diaphragmatic hernia without obstruction or gangrene; I12.9 Hypertensive chronic kidney disease with stage 1 through stage 4 chronic kidney disease, or unspecified chronic kidney disease; E87.6 Hypokalemia; D63.1 Anemia in chronic kidney disease; Z98.891 History of uterine scar from previous surgery
CPT/HCPCS: 36415; 36430; 71045; 71250; 74177; 80053; 80061; 83036; 83880; 84439; 84443; 84481; 84484; 85025; 85049; 85240; 85245; 85246; 85247; 85250; 85270; 85280; 85300; 85362; 85384; 85610; 85611; 85613; 85730; 85732; 86850; 86900; 86901; 93005; 96374; C9113; J2270; J2405; J7512; P9016

== ENCOUNTER 2023-10-23 10:09 | Emergency (ER) | payer OTHER ==
[2023-10-23 11:10] LABS: Bacteria/HPF 4+ HPF (None Seen); Bilirubin Negative (Negative); Blood, Urine Trace (Negative); CAUTI Indications for Culture Dysuria,urgency,freq; Clarity Clear (Clear); Glucose, Urine (Dipstick) Normal (Negative); Ketone, Urine Negative (Negative); Leukocyte 500 Leu/uL (Negative); Nitrite 1+ (Negative); Protein, Urine (Dipstick) 20 mg/dL (Neg-Trace); RBC/HPF 0-3 HPF (0-3); Specific Gravity, Urine 1.022 (1.002-1.036); Urobilinogen Normal mg/dL (Less than 2); pH, Urine 5.5 (5.0-9.0)
[2023-10-23 11:11] LABS: Urine Culture Reflex No No
[2023-10-23 11:40] LABS: Hematocrit 47.1 % (36.0-47.0); Hemoglobin 16.1 g/dL (12.0-16.0); Mean Corpuscular HGB CONC 34.2 g/dL (32.0-36.0); Mean Corpuscular Hemoglobin 31.8 pg (27.0-31.0); Mean Corpuscular Volume 93.1 fL (78.0-98.0); Mean Platelet Volume 9.9 fL (7.4-10.4); Platelet Count 369 10x3/uL (130-400); RBC Distribution Width 13.6 % (11.5-14.5); Red Blood Cell (RBC) Count 5.06 mill/uL (4.20-5.40)
[2023-10-23 11:45] LABS: Troponin I Less than 0.010 ng/mL (< 0.028)
[2023-10-23] MEDS ORDERED: Ondansetron PF 4 MG/2 ML Vial ONE (11:49)
[2023-10-23] MEDS ORDERED: Morphine 2 MG/ML VIAL ONE (11:51)
[2023-10-23 11:54] LABS: ALT (SGPT) 37 U/L (8-55); AST (SGOT) 41 U/L (5-34); Albumin 3.8 g/dL (3.4-4.8); Alkaline Phosphatase 202 U/L (40-110); Anion Gap 16 mmol/L (10-20); BUN (Urea Nitrogen) 25 mg/dL (9.8-20.1); Bilirubin, Total 0.4 mg/dL (0.2-1.2); Calc. Creatinine Clearance 0 mL/min (70-130); Calcium 9.9 mg/dL (7.8-10.44); Carbon Dioxide 22 mmol/L (23-31); Chloride 111 mmol/L (98-107); Estimated GFR 37; Globulin 3.5 g/dL (2.4-3.5); Glucose 98 mg/dL (83-110); Lipase 16 U/L (8-78); Potassium 3.3 mmol/L (3.5-5.1); Protein, Total 7.3 g/dL (5.8-8.1); Sodium 146 mmol/L (136-145)
[2023-10-23] MEDS ORDERED: Pantoprazole 40 MG VIAL ONE (12:05)
[2023-10-23 12:39] LABS: Band 2 % (5-11); Eosinophils 2 % (0-10); Lymphocytes 8 % (21-51); Monocytes 8 % (0-10); Neutrophil 76 % (42-75); Platelet Adequacy Comment Platelets Normal; RBC Morphology Within Normal Limits; Reactive Lymphocytes 2 % (0-10)
[2023-10-23] MEDS ORDERED: Iopamidol-370 76% 500 ML MDV (1 ML CHARGE) ONE (13:16)
== END 2023-10-23 15:54 | disposition home or self-care (01) ==
LOC: ERS 10:09
DX: K20.90 Esophagitis, unspecified without bleeding (principal); K80.20 Calculus of gallbladder without cholecystitis without obstruction; K44.9 Diaphragmatic hernia without obstruction or gangrene; R82.71 Bacteriuria; I12.9 Hypertensive chronic kidney disease with stage 1 through stage 4 chronic kidney disease, or unspecified chronic kidney disease; N18.9 Chronic kidney disease, unspecified; D64.9 Anemia, unspecified; Z75.8 Other problems related to medical facilities and other health care
CPT/HCPCS: 71275; 74174; 76705; 80053; 81001; 83605; 83690; 84484; 85025; 85379; 86850; 86900; 86901; 87086; 93005; J2272; J2405; J2470; 87077; 87186; 96374; 96375; Q9967